=== PATIENT | male | born 1980 | race Caucasian/White ===

== ENCOUNTER 2018-06-11 15:31 | Emergency (ER) | payer MEDICAID ==
[~2018-06-11] VITALS: Ht 157.5 cm; Wt 73.9 kg
[2018-06-11 15:47] VITALS: Ht 157.5 cm; Wt 73.9 kg
[2018-06-11 19:25] VITALS: BP 119/62; PULSE 62; RESP 18
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
== END 2018-06-11 19:28 | disposition home or self-care (01) ==
LOC: FTE 15:31
DX: Z48.02 Encounter for removal of sutures (principal); F17.210 Nicotine dependence, cigarettes, uncomplicated
CPT/HCPCS: 99281